=== PATIENT | female | born 1965 ===

== ENCOUNTER 2017-04-10 12:11 | Inpatient (IN) ==
[2017-04-10] MEDS ORDERED: DEXTROSE 50% 25 GM/50 ML VIAL IV PRN (16:18)
[2017-04-10] MEDS ORDERED: ONDANSETRON 4 MG/2 ML VIAL IV PRN (16:18)
[2017-04-10] MEDS ORDERED: traZODone 50 MG TABLET PO PRN (16:18)
[2017-04-10] MEDS ORDERED: LACTULOSE 20 GM/30 ML UDCUP PO PRN (16:18)
[2017-04-10] MEDS ORDERED: BISACODYL 5 MG TABLET PO PRN (16:18)
[2017-04-10] MEDS ORDERED: GLUCAGON 1 MG VIAL IM PRN (16:18)
[2017-04-10] MEDS ORDERED: ACETAMINOPHEN 325 MG TABLET PO PRN (16:18)
[2017-04-10] MEDS ORDERED: DOCUSATE SODIUM 100 MG CAPSULE PO PRN (16:18)
[2017-04-10] MEDS ORDERED: VANCOMYCIN (NICU) 1,000 MG in SYRINGE 1 EACH IV SCH (16:30)
--- NOTE | 2017-04-10 16:42 | Hospitalist History & Physical ---
<Elmer Galindo - Last Filed: 04/10/17 16:43> Assessment and Plan - Time spent with patient Time spent with patient: Greater than 30 minutes (1) Pneumonia Status: Acute Assessment and plan: Per external facility records, patient has CT suspicious for metastatic lesions versus satellite lesions including right lung consolidation and small right pleural effusion. She has been started on IV Zosyn and Vancomycin. Dr. Landaverde has been consulted to evaluated and make further recommendations. Qualifiers: Laterality: right (2) Diabetes mellitus Status: Acute Assessment and plan: Serum glucose is elevated >200. We are holding metformin due to CT. Will initiate Accu-cheks ACHS and sliding scale insulin per protocol. History of Present Illness Chief complaint: SOB, lingering cough History of present illness: Ms. Arzate is a 52 year old [place] female with a past medical history significant only for diabetes mellitus and cholecystectomy who presents via EMS as a direct admit from [facility] for further evaluation of chronic cough and CT suspicious of pneumonia. 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 In the last six weeks, she has traveled to [place], [place] and [place]. She reports that she did experience some cough productive of sputum prior to her trip [place] in February that resolved spontaneously. She reports that she began to cough again upon returning to work on March 20. She hasn't been to work since that day. During her most recent trip to [place] approximately two weeks ago she began to experience chest pain which prompted her to visit the ER in [place]. A CXR and CT confirmed the presence of pneumonia. She was started on po Levaquin. Upon returning to [place] this week, she still feels no better. A repeat CT at [facility] show multiple bilateral nodules suspicious for metastasis , small right pleural effusion. On exam, she is alert and oriented x3. She confirms nocturnal paroxysmal coughing spells, SOB and headache. She reports that she finds it difficult to sleep on her back or right side and has been sleeping in a chair lately. She denies chest pain, palpitations, hematemesis, syncope. She does have an elevated CRP of 14. Other labs were unremarkable. She is satting 93% on room air. She has been admitted to the hospital medicine service for further evaluation and treatment. Dr. Landaverde, pulmonology, is aware of this case per Dr. Pate, [facility] physician, and has been consulted for evaluation and bronchoscopy. Patient is a full code. Home meds have been reviewed and reconciled. Home Medications Medication Instructions Recorded Confirmed Type metFORMIN [Glucophage] 500 mg PO BID 04/10/17 04/10/17 History Piperacillin/Tazobactam [Zosyn] 3,375 mg IV Q8H vial 04/13/17 Rx guaiFENesin/DM ER 600-30 [Mucinex 1 tablet PO BID PRN tablet 04/13/17 Rx Dm 600-30 MG] Allergies Allergy/AdvReac Type Severity Reaction Status Date / Time codeine Allergy Verified 04/10/17 15:17 Medical,Surgical,& Family Hx - Medical History Endocrine: History of: Diabetes Mellitus (IDDM) - Surgical History Abdominal Surgeries: Surgical HX of: Cholecystectomy Reproductive Surgeries: Surgical HX of;: Section - Family History Family History: Reports;: Family Cancer (sister), Family Diabetes - Social History Smoking Status: Never smoker Frequency of Alcohol Use: None Type of Drug Use: None Marital Status: Lives With:: Spouse Functional capacity: independent ambulation 12 point system: reviewed and no additional remarkable complaints except as stated Exam - Constitutional Vitals: Period Temp Pulse Resp BP Sys/Oliver Pulse Ox Last 24 Hr 97.2 F-97.2 F 78-78 18-20 156-156/70-70 94-94 Exam: General appearance: overweight, no acute distress - Head Head exam: Present: normocephalic, atraumatic - Eye Eye exam: Present: EOMI. Absent: conjunctival injection, nystagmus Pupils: Present: ЕКАТЕРИНА, normal accommodation - ENT ENT exam: Present: normal exam, normal external ear exam - Neck Neck exam: Present: normal inspection. Absent: lymphadenopathy, tenderness, thyromegaly - Respiratory Respiratory exam: Present: clear to auscultation bilaterally. Absent: rales, rhonchi, wheezes - Cardiovascular Cardiovascular exam: Present: regular rate and rhythm. Absent: carotid bruit, gallop, rubs - GI/Abdominal GI/Abdominal exam: Present: normal bowel sounds. Absent: ascites, distended, mass - Extremities Exam Extremities exam: Present: normal inspection, normal capillary refill. Absent: edema - Back Exam Back exam: Absent: CVA tenderness (L), CVA tenderness (R) - Neurological Exam Neurological exam: Present: alert, oriented X3, CN II-XII intact, reflexes normal - Psychiatric Psychiatric exam: Present: normal affect, normal mood - Skin Skin exam: Present: normal color, warm, dry Results - Labs Lab Results: I have reviewed the past 24 hour labs <Brock Ann - Last Filed: 04/26/17 18:12> History of Present Illness History of present illness: Ms. Arzate is a 52 year old female with a pneumonia for over a month. Patient was transferred from [place] for pulmonology services. I, Dr. Ann, personally seen and evaluated the patient. I agree with the assessment and plan. Results - Labs CBC & BMP: 04/13/17 14:49 04/13/17 06:15
[2017-04-10 16:47] LABS: Basophils % 0.3 % (0.0-0.8); Eosinophils # 1.3 10*3/uL (0.0-0.87); Eosinophils % 14.9 % (0.00-10.9); Hematocrit 36.8 VOL% (35.7-47.0); Hemoglobin 12.3 GM/DL (12.0-16.0); Immature Granulocytes % 1.4 %; Immature Granulocytes Absolute 0.12 #; Lymphocytes # 1.8 10*3/uL (1.4-4.0); Lymphocytes % 19.9 % (21.3-54.2); Mean Corpuscular HGB Conc 33.4 GM/DL (32-36); Mean Corpuscular Hemoglobin 29 PG (27-34); Mean Corpuscular Volume 86.2 FL (87-102); Mean Platelet Volume 9.1 FL (9.6-12.0); Monocytes # 0.6 10*3/uL (0.11-0.8); Monocytes % 6.4 % (1.7-12.7); Neutrophils # 5.1 10*3/uL (1.4-7.4); Neutrophils % 57.1 % (38.7-73.9); Platelet Count 318 T/CUMM (130-400); Red Blood Count 4.27 MC/CUMM (3.8-5.5); Red Cell Distribution Width 12.1 % (9.3-17.3); White Blood Count 8.9 T/CUMM (4-12)
[2017-04-10] MEDS: INSULIN REGULAR 100 UNIT/ML SUBCUT SCH ×2 (16:48→21:36)
[2017-04-10] MEDS: PIPERACILLIN/TAZOBACTAM 3,375 MG in SODIUM CHLORIDE 0.9% 100 ML IV SCH (16:48)
[2017-04-10 17:07] LABS: Alanine Aminotransferase 39 U/L (13-56); Albumin 2.9 G/DL (3.4-5.0); Alkaline Phosphatase 88 U/L (45-117); Aspartate Amino Transferase 27 U/L (0-37); Bilirubin,Total < 0.39 MG/DL (0.2-1.0); Blood Urea Nitrogen 4 MG/DL (7-18); Calcium 8.2 MG/DL (8.5-10.1); Glucose 173 MG/DL (74-106); Potassium 3.4 MMOL/L (3.5-5.1); Sodium 143 MMOL/L (136-145)
[2017-04-10 17:13] LABS: Eosinophils 18 % (0-10); Lymphocytes 17 % (20-55); Polychromasia Few; Segmented Neutrophils 61 % (50-85); Total Cells Counted 100
[2017-04-10 17:14] LABS: Hypochromasia Slight; Platelet Estimate Normal
--- NOTE | 2017-04-10 17:40 | Pulmonology Consult Note ---
Assessment and Plan (1) Unresolved pneumonia Status: Acute Assessment and plan: She has had a cough for about 3 weeks and fever for several days. She has been treated with appropriate antibiotics and continued to have fever. Concerned that she may have a fungal infection or postobstructive lesion. She has had a CT done that showed no evidence of a pulmonary embolus. Will plan bronchoscopy in the morning. I will need to review the CT prior to that. Probably will need fluoroscopy. Discussed the procedure with the patient including transbronchial biopsies and the risk of bleeding or pneumothorax. Current Visit: Yes (2) Multiple lung nodules Status: Acute Assessment and plan: Concerning for malignancy versus fungal infection. Current Visit: Yes (3) Recent travel to [facility] Status: Acute Assessment and plan: Frank patient at risk for coccidioidomycosis. Current Visit: Yes History of Present Illness Chief complaint: Cough and fever History of present illness: Ms. Arzate is a 52 year old female who was sent by Dr. Kirsten Pate who is a claims assistant that runs the medical program at [facility] in [place]. The patient went on a trip to the [facility] including [place] and [place] about 6 weeks ago. She had a bit of a cough there did not came back about 3 weeks ago associated with fever. She had x-rays done at the emergency room in [place] and was told she had pneumonia and was treated with Levaquin. She presented a few days ago to the hospital in [place] and was admitted to the [facility] and has been on IV antibiotics. She has a consolidation and several other areas that are called satellite nodules and there was concern that this may be a fungal infection or a neoplasm. She does not have any history of a previous neoplasm. She is a non- smoker and never has smoked. She would of course be at risk for coccidioidomycosis in the [facility] where she has been. 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 She also travels a good bit in this job. Home Medications Medication Instructions Recorded Confirmed Type metFORMIN [Glucophage] 500 mg PO BID 04/10/17 04/10/17 History Allergies Allergy/AdvReac Type Severity Reaction Status Date / Time codeine Allergy Verified 04/10/17 15:17 12 point system: reviewed and no additional remarkable complaints except as stated - Constitutional Constitutional: Present: fever(s), weight loss (She has lost 9 pounds) - Cardiovascular Cardiovascular: Present: dyspnea, dyspnea on exertion - Respiratory Respiratory: Present: cough, dyspnea on exertion, change in phlegm color ( Phlegm has been moderately thick and clear) - Gastrointestinal Gastrointestinal: Present: vomiting (She was vomiting just before he came into the room) Exam (Pulmonay) H&P - Constitutional Vitals: Period Temp Pulse Resp BP Sys/Oliver Pulse Ox Last 24 Hr 97.2 F-97.2 F 78-78 18-20 156-156/70-70 94-94 Exam: Patient's alert and afebrile. Pupils react to light. Room air O2 sat 94%. Throat is clear. Neck is supple no bruits no lymphadenopathy. Thyroid normal size. Trachea midline. Chest sounds clear. I do not hear any rales or wheezes. No pleural rubs. Heart normal rate rhythm no murmurs no rubs no gallops. Abdomen soft nontender no masses. Extremities no clubbing cyanosis or edema. Calves nontender. Medical,Surgical,& Family Hx - Medical History Endocrine: History of: Diabetes Mellitus (IDDM) - Surgical History Abdominal Surgeries: Surgical HX of: Cholecystectomy Reproductive Surgeries: Surgical HX of;: Section - Family History Family History: Reports;: Family Cancer (sister), Family Diabetes - Social History Smoking Status: Never smoker Frequency of Alcohol Use: None Type of Drug Use: None Results - Labs CBC & BMP: 04/10/17 16:38 04/10/17 16:38 Lab Results: I have reviewed the past 24 hour labs - Diagnostic Findings Procedure: Chest x-ray: pending, CT - chest: pending (The CT disc has not been put on the computer for my review as yet.)
[2017-04-10] MEDS: guaiFENesin/DM ER 600-30 MG TABLET PO PRN (17:48)
[2017-04-10 17:52] LABS: Sedimentation Rate-Westergren 59 MM/HR (0-30)
[2017-04-10 18:20] LABS: HIV Antigen/Antibody Result Nonreactive (Nonreactive)
[2017-04-10 18:28] LABS: PT Patient Result 10.7 SECS
[2017-04-10] MEDS: VANCOMYCIN INJ 1,000 MG in SODIUM CHLORIDE 0.9% 250 ML IV SCH (23:52)
[2017-04-11] MEDS: diphenhydrAMINE CAP 25 MG CAPSULE PO PRN ×2 (00:42→14:31)
[2017-04-11] MEDS: PIPERACILLIN/TAZOBACTAM 3,375 MG in SODIUM CHLORIDE 0.9% 100 ML IV SCH ×3 (01:23→17:51)
--- NOTE | 2017-04-11 06:22 | EKG Report ---
Stationary ECG Study [facility] Test Date: 04/10/2017 5:58:39 PM Pat Name: NISHA OKEEFE Department: Room: 225 Gender: F Product Safety Tester: EI/CT : 1965 Requested by: Tyler Landaverde Order Number: [id number] Reading MD: SNEHA FERRELL Intervals [place] Rate: 83 P: 17 MO: 163 QRS: 0 QRSD: 81 T: -1 QT: 351 QTc: 391 Interpretive Statements SINUS RHYTHM MINIMAL VOLTAGE CRITERIA FOR LVH Electronically Signed On 04-11-17 06:48:20 CDT by SNEHA FERRELL [email or web address]
[2017-04-11 06:23] LABS: Basophils % 0.2 % (0.0-0.8); Eosinophils # 1.3 10*3/uL (0.0-0.87); Eosinophils % 11.3 % (0.00-10.9); Hematocrit 35.6 VOL% (35.7-47.0); Hemoglobin 12.3 GM/DL (12.0-16.0); Immature Granulocytes Absolute 0.11 #; Lymphocytes # 1.8 10*3/uL (1.4-4.0); Lymphocytes % 15.7 % (21.3-54.2); Mean Corpuscular HGB Conc 34.6 GM/DL (32-36); Mean Corpuscular Hemoglobin 29 PG (27-34); Mean Corpuscular Volume 83.4 FL (87-102); Mean Platelet Volume 9.4 FL (9.6-12.0); Monocytes # 0.7 10*3/uL (0.11-0.8); Monocytes % 5.7 % (1.7-12.7); Neutrophils # 7.6 10*3/uL (1.4-7.4); Neutrophils % 66.1 % (38.7-73.9); Platelet Count 288 T/CUMM (130-400); Red Blood Count 4.27 MC/CUMM (3.8-5.5); Red Cell Distribution Width 12.1 % (9.3-17.3); White Blood Count 11.5 T/CUMM (4-12)
[2017-04-11 06:47] LABS: Band Neutrophils 4 % (0-10); Eosinophils 10 % (0-10); Lymphocytes 11 % (20-55); Segmented Neutrophils 67 % (50-85); Total Cells Counted 100
[2017-04-11 06:48] LABS: Hypochromasia 1+; Microcytosis Slight; Platelet Estimate Normal
[2017-04-11 06:56] LABS: Albumin 2.7 G/DL (3.4-5.0); Bilirubin,Total 0.5 MG/DL (0.2-1.0); Calcium 8.4 MG/DL (8.5-10.1); Magnesium 1.9 MG/DL (1.8-2.4); Osmolality,Calculated 280.3 MOS/KG (273-304); Potassium 3.6 MMOL/L (3.5-5.1); Total Protein 6.6 G/DL (6.4-8.3)
[2017-04-11] MEDS ORDERED: MEPERIDINE 50 MG/1 ML VIAL IM ONE (07:00)
[2017-04-11] MEDS ORDERED: PROMETHAZINE 25 MG/1 ML VIAL IM ONE (07:00)
[2017-04-11] MEDS ORDERED: LIDOCAINE 1% 20 ML VIAL MISC INJ ONE (07:30)
[2017-04-11] MEDS ORDERED: MIDAZOLAM 2 MG/2 ML VIAL IV ONE (07:30)
--- NOTE | 2017-04-11 07:59 | Hospitalist Progress Note ---
Assessment and Plan - Time spent with patient Time spent with patient: Less than 30 minutes (1) Unresolved pneumonia Status: Acute Assessment and plan: Patient has been admitted and placed on broad-spectrum IV antibiotic therapy. She is now been seen by pulmonary and CAT scan reviewed. She has had recent travel to the [facility] and has multiple lung nodules. Continuing IV antibiotics and she will have bronchoscopy this morning. Appreciate pulmonary assistance. Patient is also been seen by infectious disease today. Notes have been reviewed. Current Visit: Yes (2) Multiple lung nodules Status: Acute Current Visit: Yes (3) Recent travel to [facility] Status: Acute Current Visit: Yes (4) Diabetes mellitus Status: Acute Assessment and plan: We will continue her home medical therapy along with Accu-Cheks and sliding scale. Current Visit: Yes Qualifiers: Diabetes mellitus type: type 2 Hospitalist: Subjective Interval history: Chart is been reviewed. Patient was examined. She had bronchoscopy earlier today. She is also been seen by infectious disease. She has continued cough but has no other complaints at this time. Exam - Constitutional Vitals: Period Temp Pulse Resp BP Sys/Oliver Pulse Ox Last 24 Hr 97.2 F-99.9 F 78-90 18-20 126-156/52-80 92-94 General appearance: no acute distress - Head Head exam: Present: normocephalic, atraumatic - Eye Eye exam: Present: EOMI Pupils: Present: ЕКАТЕРИНА - ENT ENT exam: Present: normal exam - Neck Neck exam: Present: normal inspection - Respiratory Respiratory exam: Present: rhonchi - Cardiovascular Cardiovascular exam: Present: regular rate and rhythm. Absent: tachycardia - GI/Abdominal GI/Abdominal exam: Present: normal bowel sounds, soft. Absent: mass, tenderness , rebound - Extremities Exam Extremities exam: Absent: calf tenderness, edema - Back Exam Back exam: Present: normal inspection - Neurological Exam Neurological exam: Present: alert, oriented X3, CN II-XII intact. Absent: motor sensory deficit - Psychiatric Psychiatric exam: Present: normal affect, normal mood. Absent: agitated, anxious - Skin Skin exam: Present: warm, dry. Absent: rash Results - Labs CBC & BMP: 04/11/17 05:32 04/11/17 05:32 Lab Results: I have reviewed the past 24 hour labs - Diagnostic Findings Procedure: Chest x-ray: report reviewed by me
--- NOTE | 2017-04-11 08:12 | Pulmonology Progress Note ---
Pulmonary - PN: Subj Interval history: This 52-year-old female has an unresolved primarily right middle lobe consolidation. She has been sick for about 6 weeks. Still having some fever. She had a recent trip to [place] and [place] and we are suspicious of possible fungal infection such as coccidioidomycosis. She is set up for bronchoscopy today. We will get brushings and hopefully some transbronchial biopsies in the right middle lobe. Exam (Progress Note) - Constitutional Vitals: Period Temp Pulse Resp BP Sys/Oliver Pulse Ox Last 24 Hr 97.2 F-99.9 F 78-90 18-20 126-156/52-80 92-94 Exam: Patient is alert oriented. Temperature 99.9. Pupils react to light. Throat is clear. Neck is supple no bruits. Chest reveals a few crackles over the right middle lobe otherwise clear. Heart normal rate and rhythm no murmurs. Abdomen soft nontender no masses. Extremities no clubbing cyanosis or edema. Calves nontender. Results - Labs CBC & BMP: 04/11/17 05:32 04/11/17 05:32 Lab Results: I have reviewed the past 24 hour labs - Diagnostic Findings Procedure: CT Abdomen and Pelvis: image reviewed by me (Consolidation with air bronchograms in right middle lobe. Consistent with unresolved pneumonia. Certainly could be an acute fungal pneumonia as well. She has small satellite lesion suggestive of metastatic disease) Assessment and Plan (1) Unresolved pneumonia Status: Acute Assessment and plan: She has had a cough for about 3 weeks and fever for several days. She has been treated with appropriate antibiotics and continued to have fever. Concerned that she may have a fungal infection or postobstructive lesion. She has had a CT done that showed no evidence of a pulmonary embolus. Will plan bronchoscopy in the morning. I will need to review the CT prior to that. Probably will need fluoroscopy. Discussed the procedure with the patient including transbronchial biopsies and the risk of bleeding or pneumothorax. 04/11/2017 patient is for bronchoscopy with biopsies of the right middle lobe today. She is on empiric antibiotics now. Current Visit: Yes (2) Multiple lung nodules Status: Acute Assessment and plan: Concerning for malignancy versus fungal infection. 04/11. The pulmonary nodules are too small really to see under fluoroscopy so the biopsies will be primarily in the area of the unresolved pneumonia. Likely it is the same process Current Visit: Yes (3) Recent travel to [facility] Status: Acute Assessment and plan: Makes patient at risk for coccidioidomycosis. 04/11/2017 this occurred about 6-8 weeks ago. Just prior to the onset of her symptoms. Current Visit: Yes
--- NOTE | 2017-04-11 08:55 | Operative Note ---
Date of procedure: 04/11/17 (Fiberoptic bronchoscopy with transbronchial biopsies right middle lobe 2 under fluoroscopy, bronchial brushings and washings) Pre-op diagnosis: Unresolved right middle lobe pneumonia suspected fungal infection Post-op diagnosis: same Procedure: The patient was given preoperative medication on the rinaldi. She was transported to the bronchoscopy suite. After an appropriate timeout to be sure we were dealing with Sisi Arzate, the patient was topically anesthetized in the nose and nasopharynx with Xylocaine. 3 L of nasal oxygen was placed in the right naris. She was given 2 mg and then an additional 2 mg of Versed to the point of sedation so a total of 4 mg. The fiberoptic bronchoscope was introduced via the left naris. Vocal cords were identified and noted to function normally with phonation. After further topical anesthesia the trachea was entered and was free of lesions. The alcon was sharp. The left lung showed some mild erythema but no endobronchial lesions. On the right side there were some increased secretions in the right middle lobe. However there were no endobronchial lesions. The fiberoptic bronchoscope was positioned in the right middle lobe. Under fluoroscopy we did transbronchial biopsies 2 in the right middle lobe and a brushing 1 in the right middle lobe. We obtained washings, actually lavaged the right middle lobe prior to doing the biopsies. There was only minimal bleeding did not require anything to subside on its own. The fiberoptic bronchoscope was removed and the patient returned to the her room in stable condition. Anesthesia: conscious sedation Surgeon / Physician: Tyler Landaverde Estimated blood loss: minimal Specimens: other (Bronchial washings, brushings 1, transbronchial biopsies 2 right middle lobe) Condition: stable Disposition: floor Results - Labs CBC & BMP: 04/11/17 05:32 04/11/17 05:32 Discharge Plan - Discharge Medications No Action metFORMIN [Glucophage] 500 mg PO BID - Follow Up or Referral - Forms/Instructions
[2017-04-11] MEDS ORDERED: ENOXAPARIN 40 MG/0.4 ML SYRINGE SUBCUT SCH (09:00)
[2017-04-11] MEDS: INSULIN REGULAR 100 UNIT/ML SUBCUT SCH ×4 (09:08→22:08)
[2017-04-11] MEDS ORDERED: MIDAZOLAM 2 MG/2 ML VIAL ONE ×2 (09:49→09:50)
--- NOTE | 2017-04-11 10:49 | Infectious Disease Consult ---
Assessment and Plan (1) Diabetes mellitus Status: Acute Assessment and plan: Fairly well controlled per patient Current Visit: Yes Qualifiers: Diabetes mellitus type: type 2 (2) Multiple lung nodules Status: Acute Assessment and plan: Bronchoscopy done today. Will await results. Current Visit: Yes (3) Unresolved pneumonia Status: Acute Assessment and plan: Possibly an atypical pneumonia, particularly fungal, given her travel history. Recommendations: 1. Send urine histoplasma antigen as well as serum cryptococcal antigen. I see Coccidioides serology was sent and we will follow those results. 2. Agree with current empiric antibiotics vancomycin and Zosyn. 3. Follow-up results of pending studies and adjust antibiotics accordingly Thank you very much for the consult. Will follow. Discussed with patient's at bedside. Current Visit: Yes History of Present Illness Chief complaint: Pneumonia History of present illness: Ms. Arzate is a 52 year old female was well until about 3 weeks ago when she developed a cough. The cough subsequently became productive of yellowish sputum , never hemoptysis. She started having fever about 1-1/2 weeks ago T-max of 100. Because of the persisting cough the patient decided to seek medical attention at [facility] and was subsequently transferred here. 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 Over the past months she has been to [place], [place], and [place]. No known ill contacts, is doing well. He has been on the trips with her. The patient is diabetic with her last A1c she says being 7.1%. Apparently a CT chest [facility] revealed multiple pulmonary nodules and also some consolidation in the right middle lung. I am asked to assist with management of this persisting pneumonia. Home Medications Medication Instructions Recorded Confirmed Type metFORMIN [Glucophage] 500 mg PO BID 04/10/17 04/10/17 History Allergies Allergy/AdvReac Type Severity Reaction Status Date / Time codeine Allergy Verified 04/10/17 15:17 12 point system: reviewed and no additional remarkable complaints except as stated (Per HPI) Medical,Surgical,& Family Hx - Medical History Endocrine: History of: Diabetes Mellitus (IDDM) - Surgical History Abdominal Surgeries: Surgical HX of: Cholecystectomy Reproductive Surgeries: Surgical HX of;: Section - Family History Family History: Reports;: Family Cancer (sister), Family Diabetes - Social History Smoking Status: Never smoker Frequency of Alcohol Use: None Type of Drug Use: None Infectious Disease Exam H&P - Constitutional Vitals: Vital Signs Temp Pulse Resp BP Pulse Ox 98.9 F 92 H 16 141/7 95 04/11/17 07:10 04/11/17 09:22 04/11/17 09:22 04/11/17 09:22 04/11/17 09:16 Intake and Output 04/10/17 04/11/17 04/11/17 23:59 07:59 15:59 Intake Total 100 / 100 250 / 250 100 / 100 Output Total 900 / 900 1000 / 1000 Balance -800 / -800 -750 / -750 100 / 100 Intake: IV 100 / 100 250 / 250 100 / 100 Zosyn 3,375 mg In Ns 100 100 / 100 100 / 100 ml @ 25 mls/hr IV Q8H YAHIR Rx#:[id number] Vancomycin Inj 1,000 mg 250 / 250 In Ns 250 ml @ 250 mls/hr IV Q12H YAHIR Rx#: [id number] Output: Urine 900 / 900 1000 / 1000 Other: Voiding Method Urinal Urinal Exam: General: Patient relatively comfortable, but coughing intermittently, dry cough HEENT: Mucous membranes pink and moist, anicteric acyanotic, ЕКАТЕРИНА, no oropharyngeal exudates, good dentition Neck: Supple, no thyroid gland enlargement, no lymphadenopathy Respiratory system: Breath sounds vesicular, no crepitations or wheezes heard Cardiovascular: Normal S1 and S2, no murmurs appreciated Abdomen: Normal bowel sounds, soft nontender throughout, no organomegaly or mass Genitourinary: No suprapubic pain or bladder distention Extremities: no edema Skin: No rash Reports - Labs CBC & BMP: 04/11/17 05:32 04/11/17 05:32 Labs: Laboratory Results - last 24 hr 04/10/17 04/10/17 04/10/17 15:16 16:33 16:38 WBC 8.9 RBC 4.27 Hgb 12.3 Hct 36.8 MCV 86.2 L MCH 29 MCHC 33.4 RDW 12.1 Plt Count 318 MPV 9.1 L Neut % (Auto) 57.1 Lymph % (Auto) 19.9 L Terrell % (Auto) 6.4 Eos % (Auto) 14.9 H Baso % (Auto) 0.3 Neut # (Auto) 5.1 Lymph # (Auto) 1.8 Terrell # (Auto) 0.6 Eos # (Auto) 1.3 H Baso # (Auto) 0.0 Total Counted 100 Immature Gran % 1.4 Nucleated RBC % 0.0 Immature Gran # 0.12 Segmented Neutrophils 61 Band Neutrophils Lymphocytes 17 L Monocytes 4 Eosinophils 18 H Basophils Nucleated RBCs # 0.00 Platelet Estimate Normal Polychromasia Few Hypochromasia Slight Microcytosis ESR Westergren 59 H INR 1.0 PT Patient/Control Mix 10.7 Circ Anticoag PTT 43.0 H Sodium Potassium Chloride Carbon Dioxide Anion Gap BUN Creatinine GFR Calculation BUN/Creatinine Ratio Glucose POC Glucose 239 H Hemoglobin A1c Calculated Osmolality Calcium Magnesium Total Bilirubin AST ALT Alkaline Phosphatase C-Reactive Protein Total Protein Albumin Globulin Albumin/Globulin Ratio HIV 1&2 Antigen & Ab 04/10/17 04/10/17 04/10/17 16:38 16:38 20:46 WBC RBC Hgb Hct MCV MCH MCHC RDW Plt Count MPV Neut % (Auto) Lymph % (Auto) Terrell % (Auto) Eos % (Auto) Baso % (Auto) Neut # (Auto) Lymph # (Auto) Terrell # (Auto) Eos # (Auto) Baso # (Auto) Total Counted Immature Gran % Nucleated RBC % Immature Gran # Segmented Neutrophils Band Neutrophils Lymphocytes Monocytes Eosinophils Basophils Nucleated RBCs # Platelet Estimate Polychromasia Hypochromasia Microcytosis ESR Westergren INR PT Patient/Control Mix Circ Anticoag PTT Sodium 143 Potassium 3.4 L Chloride 107 Carbon Dioxide 27 Anion Gap 12.4 BUN 4 L Creatinine 0.60 GFR Calculation 97 BUN/Creatinine Ratio 6.00 Glucose 173 H POC Glucose 229 H Hemoglobin A1c Calculated Osmolality 285.0 Calcium 8.2 L Magnesium Total Bilirubin < 0.39 AST 27 ALT 39 Alkaline Phosphatase 88 C-Reactive Protein 11.40 H Total Protein 7.0 Albumin 2.9 L Globulin 4.1 H Albumin/Globulin Ratio 0.7 L HIV 1&2 Antigen & Ab Nonreactive 04/11/17 04/11/17 04/11/17 05:32 05:32 05:32 WBC 11.5 RBC 4.27 Hgb 12.3 Hct 35.6 L MCV 83.4 L MCH 29 MCHC 34.6 RDW 12.1 Plt Count 288 MPV 9.4 L Neut % (Auto) 66.1 Lymph % (Auto) 15.7 L Terrell % (Auto) 5.7 Eos % (Auto) 11.3 H Baso % (Auto) 0.2 Neut # (Auto) 7.6 H Lymph # (Auto) 1.8 Terrell # (Auto) 0.7 Eos # (Auto) 1.3 H Baso # (Auto) 0.0 Total Counted 100 Immature Gran % 1.0 Nucleated RBC % 0.0 Immature Gran # 0.11 Segmented Neutrophils 67 Band Neutrophils 4 Lymphocytes 11 L Monocytes 7 Eosinophils 10 Basophils 1.0 H Nucleated RBCs # 0.00 Platelet Estimate Normal Polychromasia Hypochromasia 1+ Microcytosis Slight ESR Westergren INR PT Patient/Control Mix Circ Anticoag PTT Sodium 141 Potassium 3.6 Chloride 107 Carbon Dioxide 26 Anion Gap 11.6 BUN 4 L Creatinine 0.60 GFR Calculation 97 BUN/Creatinine Ratio 6.00 Glucose 150 H POC Glucose Hemoglobin A1c 8.2 H Calculated Osmolality 280.3 Calcium 8.4 L Magnesium 1.9 Total Bilirubin 0.50 AST 21 ALT 33 Alkaline Phosphatase 79 C-Reactive Protein Total Protein 6.6 Albumin 2.7 L Globulin 3.9 H Albumin/Globulin Ratio 0.6 L HIV 1&2 Antigen & Ab 04/11/17 06:51 WBC RBC Hgb Hct MCV MCH MCHC RDW Plt Count MPV Neut % (Auto) Lymph % (Auto) Terrell % (Auto) Eos % (Auto) Baso % (Auto) Neut # (Auto) Lymph # (Auto) Terrell # (Auto) Eos # (Auto) Baso # (Auto) Total Counted Immature Gran % Nucleated RBC % Immature Gran # Segmented Neutrophils Band Neutrophils Lymphocytes Monocytes Eosinophils Basophils Nucleated RBCs # Platelet Estimate Polychromasia Hypochromasia Microcytosis ESR Westergren INR PT Patient/Control Mix Circ Anticoag PTT Sodium Potassium Chloride Carbon Dioxide Anion Gap BUN Creatinine GFR Calculation BUN/Creatinine Ratio Glucose POC Glucose 191 H Hemoglobin A1c Calculated Osmolality Calcium Magnesium Total Bilirubin AST ALT Alkaline Phosphatase C-Reactive Protein Total Protein Albumin Globulin Albumin/Globulin Ratio HIV 1&2 Antigen & Ab - Reports Microbiology: Microbiology 04/11/17 Unknown Fungal Smear - Final Bronchial Washings No fungal elements seen - Impressions No imaging studies available for me to review
[2017-04-11] MEDS: PANTOPRAZOLE 40 MG TABLET PO SCH (11:01)
--- NOTE | 2017-04-11 12:07 | XRay Report ---
XR chest inspiration expiratio Indication: Status post bronchoscopy. Comparison: Chest x-ray 04/09/2017. Technique: AP chest was performed in inspiration and expiration. Findings: There is no evidence of pneumothorax. The chest is essentially stable when compared to previous study. Airspace disease remains present within the mid and lower right lung. Impression: 1. Stable interval appearance of the chest. No evidence of acute complication from recent procedure. 04/11/2017 12:03 PM PROCEDURE INTERPRETED AT [facility] DEPARTMENT OF RADIOLOGY Final Report Signed by: Dr. Ascencion Zarate
[2017-04-11] MEDS: VANCOMYCIN INJ 1,000 MG in SODIUM CHLORIDE 0.9% 250 ML IV SCH (13:19)
[2017-04-11] MEDS ORDERED: VANCOMYCIN INJ 1,500 MG in SODIUM CHLORIDE 0.9% 500 ML IV ONE (13:30)
[2017-04-11] MEDS: guaiFENesin/DM ER 600-30 MG TABLET PO PRN (14:40)
--- NOTE | 2017-04-11 19:31 | ECHO Report ---
Sisi Arzate Exam Date: 04/11/2017 09:03 Referring Physician: Technologist: lupe Covington ARDMS, RVT Age: 52 Ht (in): 60 Wt (lb): 145 Gender: F Exam Location: [facility] Echo Indications: Cough, Shortness of breath, Pneumonia, IDDM BP: 139 / 75 HR: 92 Rhythm: Sinus Technical Quality: IMPRESSIONS Normal left ventricular cavity size. Normal left ventricular wall thickness and systolic function. Left ventricular ejection fraction is estimated at 60 %. Normal diastolic function. No significant valvular anormalities. MEASUREMENTS (Male / Female) Normal Values 2D ECHO LV Diastolic Diameter PLAX 3.6 cm 4.2 - 5.9 / 3.9 - 5.3 cm LV Systolic Diameter PLAX 1.9 cm LV Fractional Shortening PLAX 46.8 % IVS Diastolic Thickness 0.9 cm 0.6 - 1.0 / 0.6 - 0.9 cm LVPW Diastolic Thickness 0.9 cm 0.6 - 1.0 / 0.6 - 0.9 cm RV Internal Dim ED PLAX 2.2 cm Aortic Root Diameter 2.6 cm LA Systolic Diameter LX 2.8 cm 3.0 - 4.0 / 2.7 - 3.8 cm DOPPLER TR Peak Velocity 205.0 cm/s TR Peak Gradient 16.8 mmHg FINDINGS Left Ventricle Normal left ventricular cavity size. Normal left ventricular wall thickness and systolic function. Left ventricular ejection fraction is estimated at 60 %. Normal diastolic function. Right Ventricle The right ventricle is normal in size and function. Right Atrium The right atrium is normal in size. Left Atrium The left atrium is normal in size. Mitral Valve Morphologically normal mitral valve without significant stenosis or prolapse. There is no mitral regurgitation. Aortic Valve Morphologically normal aortic valve without significant sclerosis or stenosis. There is no aortic regurgitation. Tricuspid Valve Morphologically normal tricuspid valve. Trace tricuspid valve regurgitation. Tricuspid regurgitation velocities suggest a PAP of 27 mmHg. Pulmonic Valve Morphologically normal pulmonic valve. Trace pulmonary valve regurgitation. Pericardium Normal pericardium without effusion. Aorta Normal ascending aorta dimension. Joaquín Lim (Electronically Signed) Final Date: 11 April 2017 19:03
[2017-04-11] MEDS: metFORMIN 500 MG TABLET PO SCH (22:08)
[2017-04-12] MEDS: diphenhydrAMINE CAP 25 MG CAPSULE PO PRN ×3 (01:25→23:13)
[2017-04-12] MEDS: VANCOMYCIN INJ 1,000 MG in SODIUM CHLORIDE 0.9% 250 ML IV SCH ×2 (01:52→14:03)
[2017-04-12] MEDS: PIPERACILLIN/TAZOBACTAM 3,375 MG in SODIUM CHLORIDE 0.9% 100 ML IV SCH ×3 (03:00→16:54)
--- NOTE | 2017-04-12 07:22 | Pulmonology Progress Note ---
Pulmonary - PN: Subj Interval history: This 52-year-old female has an unresolved primarily right middle lobe consolidation. She has been sick for about 6 weeks. Still having some fever. She had a recent trip to [place] and [place] and we are suspicious of possible fungal infection such as coccidioidomycosis. She is set up for bronchoscopy today. We will get brushings and hopefully some transbronchial biopsies in the right middle lobe. 04/12/2017 patient is afebrile and feeling a little better. She had some blood- streaked sputum yesterday following the lung biopsies. Should have pathology report out tomorrow. I discussed the case with Dr. Kirsten Pate at the [facility]. They would like for her to be transferred back up there after the path report is back. Hopefully we will have plans for treatment at that time. Exam (Progress Note) - Constitutional Vitals: Period Temp Pulse Resp BP Sys/Oliver Pulse Ox Last 24 Hr 96.8 F-98.8 F 72-94 14-20 99-156/7 90-98 Exam: Patient is alert oriented. Temperature normal. Pupils react to light. Throat is clear. Neck is supple no bruits. Chest reveals a few crackles over the right middle lobe otherwise clear. Heart normal rate and rhythm no murmurs. Abdomen soft nontender no masses. Extremities no clubbing cyanosis or edema. Calves nontender. Results - Labs CBC & BMP: 04/11/17 05:32 04/11/17 05:32 Lab Results: I have reviewed the past 24 hour labs - Diagnostic Findings Procedure: Chest x-ray: image reviewed by me (Post bronchoscopy chest x-ray was okay. No pneumothorax.) Assessment and Plan (1) Unresolved pneumonia Status: Acute Assessment and plan: She has had a cough for about 3 weeks and fever for several days. She has been treated with appropriate antibiotics and continued to have fever. Concerned that she may have a fungal infection or postobstructive lesion. She has had a CT done that showed no evidence of a pulmonary embolus. Will plan bronchoscopy in the morning. I will need to review the CT prior to that. Probably will need fluoroscopy. Discussed the procedure with the patient including transbronchial biopsies and the risk of bleeding or pneumothorax. 04/11/2017 patient is for bronchoscopy with biopsies of the right middle lobe today. She is on empiric antibiotics now. 04/12/2017 await pathology report. Continuing empiric antibiotics for bacterial pneumonia. Still concerned about the possibility of a fungal pneumonia Current Visit: Yes (2) Multiple lung nodules Status: Acute Assessment and plan: Concerning for malignancy versus fungal infection. 04/11. The pulmonary nodules are too small really to see under fluoroscopy so the biopsies will be primarily in the area of the unresolved pneumonia. Likely it is the same process Current Visit: Yes (3) Recent travel to [facility] Status: Acute Assessment and plan: Makes patient at risk for coccidioidomycosis. 04/11/2017 this occurred about 6-8 weeks ago. Just prior to the onset of her symptoms. 04/12/2017 again makes certain fungal etiologies and play. Primarily coccidioidomycosis. Current Visit: Yes (4) Diabetes mellitus Status: Acute Assessment and plan: We can resume her metformin now. Current Visit: Yes Qualifiers: Diabetes mellitus type: type 2
[2017-04-12] MEDS: PANTOPRAZOLE 40 MG TABLET PO SCH (08:25)
[2017-04-12] MEDS: metFORMIN 500 MG TABLET PO SCH ×2 (08:25→22:00)
[2017-04-12] MEDS: INSULIN REGULAR 100 UNIT/ML SUBCUT SCH ×4 (08:26→22:05)
--- NOTE | 2017-04-12 13:17 | Pathology Report from [facility] ---
[facility] – [place] ACCESSION # : [id number] PATIENT NAME : Sisi Arzate ORDERING DR : ARMANDO HARRINGTON MD CLINICAL HX: Unresolved Right Middle Lung Consolidation, Possible fungal infection. POST-OP DX: Same SPECIMEN INFO: Washing,Bronchial,RML - 10 mls blood-tinged, slighty cloudy, mucoid. CLASS: II CLASS COMMENTS: Reactive pulmonary cells, inflammationCELL BLOCK: Same CLASS LEGEND: CLASS 0 Material inadequate for diagnosis because of (see comment) CLASS I Absence of atypical or abnormal cells CLASS II Atypical Cytology but no evidence of malignancy CLASS III Cytology suggestive of but not conclusive for malignancy CLASS IV Cytology strongly suggestive of malignancy CLASS V Cytology conclusive for malignancy COLLECTED DATE: 04/11/2017 [facility] REPORT DATE: 04/12/2017 ELECTRONICALLY SIGNED BY: Karen Martin M.D. 04/12/2017 - 9:21:41 [email or web address]
--- NOTE | 2017-04-12 13:17 | Pathology Report from [facility] ---
[facility] ACCESSION # : [id number] PATIENT NAME : Sisi Arzate ORDERING DR : ARMANDO HARRINGTON MD CLINICAL HX: Unresolved Right Middle Lung Consolidation, Possible fungal infection. POST-OP DX: Same SPECIMEN INFO: Brushing,Bronchial,RML - 1 brush (Received in Cytolyt). CLASS: II CLASS COMMENTS: Reactive pulmonary cells, inflammationCELL BLOCK: Same CLASS LEGEND: CLASS 0 Material inadequate for diagnosis because of (see comment) CLASS I Absence of atypical or abnormal cells CLASS II Atypical Cytology but no evidence of malignancy CLASS III Cytology suggestive of but not conclusive for malignancy CLASS IV Cytology strongly suggestive of malignancy CLASS V Cytology conclusive for malignancy COLLECTED DATE: 04/11/2017 [facility] REPORT DATE: 04/12/2017 ELECTRONICALLY SIGNED BY: Karen Martin M.D. 04/12/2017 - 9:30:32 [email or web address]
[2017-04-12] MEDS ORDERED: VANCOMYCIN 1,000 MG VIAL IV SCH (14:00)
[2017-04-12] MEDS: VANCOMYCIN INJ 1,250 MG in SODIUM CHLORIDE 0.9% 250 ML IV SCH ×2 (15:02→23:13)
--- NOTE | 2017-04-12 15:08 | Hospitalist Progress Note ---
Assessment and Plan (1) Diabetes mellitus Status: Acute Assessment and plan: Home meds, SSI Current Visit: Yes Qualifiers: Diabetes mellitus type: type 2 (2) Unresolved pneumonia Status: Acute Assessment and plan: Pulmonary and ID on board On vancomycin and zosyn Underwent bronchoscopy yesterday Current Visit: Yes (3) Multiple lung nodules Status: Acute Assessment and plan: Bronch yesterday f/u path Current Visit: Yes (4) Recent travel to [facility] Status: Acute Current Visit: Yes Hospitalist: Subjective Interval history: No acute events overnight. She is feeling better. Still with cough. She is eager for discharge. Exam - Constitutional Vitals: Period Temp Pulse Resp BP Sys/Oliver Pulse Ox Last 24 Hr 96.8 F-97.7 F 73-85 18-20 115-156/57-80 90-96 General appearance: normal weight - Head Head exam: Present: normocephalic, atraumatic - Eye Eye exam: Present: EOMI Pupils: Present: ЕКАТЕРИНА - ENT ENT exam: Present: normal exam - Neck Neck exam: Present: normal inspection - Respiratory Respiratory exam: Present: wheezes - Cardiovascular Cardiovascular exam: Present: regular rate and rhythm - GI/Abdominal GI/Abdominal exam: Present: normal bowel sounds, soft - Extremities Exam Extremities exam: Present: normal inspection - Back Exam Back exam: Present: normal inspection - Neurological Exam Neurological exam: Present: alert, oriented X3 - Psychiatric Psychiatric exam: Present: normal affect, normal mood - Skin Skin exam: Present: warm, intact Results - Labs CBC & BMP: 04/11/17 05:32 04/11/17 05:32
--- NOTE | 2017-04-12 15:51 | Infectious Disease Progress ---
Assessment and Plan (1) Diabetes mellitus Status: Acute Assessment and plan: Fairly well controlled per patient Current Visit: Yes Qualifiers: Diabetes mellitus type: type 2 (2) Multiple lung nodules Status: Acute Assessment and plan: There is evidence of right lower lung pneumonia. Initial studies negative so far. Patient seems better on current antibiotic therapy so we will continue those and follow-up pending studies. Current Visit: Yes (3) Unresolved pneumonia Status: Acute Assessment and plan: Possibly an atypical pneumonia, particularly fungal, given her travel history. Recommendations: Continue current management and follow-up pending serologies. Current Visit: Yes Infectious Disease - PN: Subj Interval history: Patient says she is feeling a bit better today coughing a bit less, she has not had fever. Eating a little better. Infectious Disease Exam (PN) - Constitutional Vitals: Temp Pulse Resp BP Pulse Ox 97.7 F 83 20 120/75 96 04/12/17 11:46 04/12/17 11:46 04/12/17 11:46 04/12/17 11:46 04/12/17 11:46 General appearance: normal weight Exam: General appearance: no acute distress - Eye Eye exam: Present: EOMI. no icterus Pupils: Present: ЕКАТЕРИНА - ENT ENT exam: no oral exudates - Respiratory Respiratory exam: vesicular BS, no crepitations or wheezes - Cardiovascular Cardiovascular exam: regular rate and rhythm, no murmurs - GI/Abdominal GI/Abdominal exam: normal bowel sounds, soft, non-tender, no organomegaly or mass - Extremities Exam Extremities exam: no edema - Skin Skin exam: no rash Results - Labs CBC & BMP: 04/11/17 05:32 04/11/17 05:32 Lab Results: I have reviewed the past 24 hour labs - Diagnostic Findings Procedure: Chest x-ray: image reviewed by me, report reviewed by me (Right lung base consolidation or pulmonary studies on BAL sample negative)
[2017-04-13] MEDS: PIPERACILLIN/TAZOBACTAM 3,375 MG in SODIUM CHLORIDE 0.9% 100 ML IV SCH ×2 (00:50→08:42)
--- NOTE | 2017-04-13 03:21 | Pathology Report from [facility] ---
[facility] ACCESSION # : [id number] PATIENT NAME : Sisi Arzate ORDERING DR : ARMANDO HARRINGTON MD CLINICAL HX: Unresolved Right Middle Lung Consolidation, Possible fungal infection. POST-OP DX: Same SPECIMEN INFO: Brushing,Bronchial,RML - 1 brush (Received in Cytol[facility]). CLASS: II CLASS COMMENTS: Reactive pulmonary cells, inflammationCELL BLOCK: Same CLASS LEGEND: CLASS 0 Material inadequate for diagnosis because of (see comment) CLASS I Absence of atypical or abnormal cells CLASS II Atypical Cytology but no evidence of malignancy CLASS III Cytology suggestive of but not conclusive for malignancy CLASS IV Cytology strongly suggestive of malignancy CLASS V Cytology conclusive for malignancy COLLECTED DATE: 04/11/2017 [facility] REPORT DATE: 04/12/2017 ELECTRONICALLY SIGNED BY: Karen Martin M.D. 04/12/2017 - 9:30:32 [email or web address]
--- NOTE | 2017-04-13 03:21 | Pathology Report from [facility] ---
[facility] [place] ACCESSION # : [id number] PATIENT NAME : Sisi Arzate ORDERING DR : ARMANDO HARRINGTON MD CLINICAL HX: Unresolved Right Middle Lung Consolidation, Possible fungal infection. POST-OP DX: Same SPECIMEN INFO: Washing,Bronchial,RML - 10 mls blood-tinged, slighty cloudy, mucoid. CLASS: II CLASS COMMENTS: Reactive pulmonary cells, inflammationCELL BLOCK: Same CLASS LEGEND: CLASS 0 Material inadequate for diagnosis because of (see comment) CLASS I Absence of atypical or abnormal cells CLASS II Atypical Cytology but no evidence of malignancy CLASS III Cytology suggestive of but not conclusive for malignancy CLASS IV Cytology strongly suggestive of malignancy CLASS V Cytology conclusive for malignancy COLLECTED DATE: 04/11/2017 [facility] REPORT DATE: 04/12/2017 ELECTRONICALLY SIGNED BY: Karen Martin M.D. 04/12/2017 - 9:21:41 [email or web address]
--- NOTE | 2017-04-13 03:34 | Pathology Report from [facility] ---
[facility] ACCESSION # : [id number] PATIENT NAME : Nisha Okeefe ORDERING DR : ARMANDO HARRINGTON MD CLINICAL HX: Unresolved RML consolidation POST-OP DX: Suspect fungal infection SPECIMEN INFO: RML bronchial biopsies 2 GROSS DESCRIPTION: The specimen is received in formalin labeled with the patients name NISHA OKEEFE and consists of fragments of white mucosal tissue measuring 0.2 x 0.4 cm. Submitted in one cassette. DIAGNOSIS FOR NISHA OKEEFE: RIGHT MIDDLE LOBE BRONCHIAL BIOPSIES X 2: Acute inflammation, fibrosis, anthracosis. No granulomas or malignancy seen. GMS and PASAB fungal stains negative; AFB stain negative. Microbiological cultures to follow. COLLECTED DATE: 04/11/2017 [facility] REPORT DATE: 04/12/2017 ELECTRONICALLY SIGNED BY: Karen Martin M.D. 04/12/2017 - 14:24:53 [facility]
[2017-04-13] MEDS: diphenhydrAMINE CAP 25 MG CAPSULE PO PRN (06:24)
[2017-04-13] MEDS: VANCOMYCIN INJ 1,250 MG in SODIUM CHLORIDE 0.9% 250 ML IV SCH (06:24)
[2017-04-13 07:02] LABS: Calcium 8.4 MG/DL (8.5-10.1); Osmolality,Calculated 286.8 MOS/KG (273-304); Potassium 3.7 MMOL/L (3.5-5.1)
--- NOTE | 2017-04-13 08:10 | Pulmonology Progress Note ---
Pulmonary - PN: Subj Interval history: This 52-year-old female has an unresolved primarily right middle lobe consolidation. She has been sick for about 6 weeks. Still having some fever. She had a recent trip to [place] and [place] and we are suspicious of possible fungal infection such as coccidioidomycosis. She is set up for bronchoscopy today. We will get brushings and hopefully some transbronchial biopsies in the right middle lobe. 04/12/2017 patient is afebrile and feeling a little better. She had some blood- streaked sputum yesterday following the lung biopsies. Should have pathology report out tomorrow. I discussed the case with Dr. Kirsten Pate at the [facility]. They would like for her to be transferred back up there after the path report is back. Hopefully we will have plans for treatment at that time. 04/13/17 patient feeling much better. Bronchial washings negative for fungi. Biopsies do not show any granulomas or fungi. I think this is a bacterial pneumonia. She is clearly better on Zosyn and Levaquin. I would finish out about 5 days of IV antibiotics. Dr. Pate will take her back at the [facility] today. She can finish treatment there. It is possible that fungal cultures may yet grow out positive in a couple of weeks. Can contact Dr. Pate if that is the case. However I think that is unlikely. Also the serology for fungi is pending Exam (Progress Note) - Constitutional Vitals: Period Temp Pulse Resp BP Sys/Oliver Pulse Ox Last 24 Hr 97.1 F-98.8 F 73-84 20-20 120-146/67-81 92-96 Exam: Patient is alert oriented. Temperature normal. Pupils react to light. Throat is clear. Neck is supple no bruits. Chest reveals a few crackles over the right middle lobe otherwise clear. Heart normal rate and rhythm no murmurs. Abdomen soft nontender no masses. Extremities no clubbing cyanosis or edema. Calves nontender. Results - Labs CBC & BMP: 04/11/17 05:32 04/13/17 06:15 Lab Results: I have reviewed the past 24 hour labs Assessment and Plan (1) Unresolved pneumonia Status: Acute Assessment and plan: She has had a cough for about 3 weeks and fever for several days. She has been treated with appropriate antibiotics and continued to have fever. Concerned that she may have a fungal infection or postobstructive lesion. She has had a CT done that showed no evidence of a pulmonary embolus. Will plan bronchoscopy in the morning. I will need to review the CT prior to that. Probably will need fluoroscopy. Discussed the procedure with the patient including transbronchial biopsies and the risk of bleeding or pneumothorax. 04/11/2017 patient is for bronchoscopy with biopsies of the right middle lobe today. She is on empiric antibiotics now. 04/12/2017 await pathology report. Continuing empiric antibiotics for bacterial pneumonia. Still concerned about the possibility of a fungal pneumonia 04/13/2017 pathology report shows no evidence of fungi. No granulomas. Likely bacterial pneumonia. Cultures and fungal serology will take a while coming back. Current Visit: Yes (2) Multiple lung nodules Status: Acute Assessment and plan: Concerning for malignancy versus fungal infection. 04/11. The pulmonary nodules are too small really to see under fluoroscopy so the biopsies will be primarily in the area of the unresolved pneumonia. Likely it is the same process 04/13/2017 will need follow-up x-ray to be sure these do not grow. A CT in 6 weeks would be indicated. Current Visit: Yes (3) Recent travel to [facility] Status: Acute Assessment and plan: Makes patient at risk for coccidioidomycosis. 04/11/2017 this occurred about 6-8 weeks ago. Just prior to the onset of her symptoms. 04/12/2017 again makes certain fungal etiologies in play. Primarily coccidioidomycosis. 04/13/2017 tests are negative for fungi at this point. Would treat with antibiotics for 5 more days. Again this could be done in [place] at the [facility]. Current Visit: Yes (4) Diabetes mellitus Status: Acute Assessment and plan: We can resume her metformin now. 04/13/2017 blood sugars well controlled. Current Visit: Yes Qualifiers: Diabetes mellitus type: type 2
[2017-04-13] MEDS: metFORMIN 500 MG TABLET PO SCH (08:37)
[2017-04-13] MEDS: PANTOPRAZOLE 40 MG TABLET PO SCH (08:39)
[2017-04-13] MEDS: INSULIN REGULAR 100 UNIT/ML SUBCUT SCH ×3 (08:40→16:04)
--- NOTE | 2017-04-13 10:59 | Infectious Disease Progress ---
Assessment and Plan (1) Diabetes mellitus Status: Acute Assessment and plan: Fairly well controlled per patient Current Visit: Yes Qualifiers: Diabetes mellitus type: type 2 (2) Multiple lung nodules Status: Acute Assessment and plan: There is evidence of right lower lung pneumonia. Patient has had good response to antibiotic therapy suggesting that this is a bacterial pneumonia. Her Coccidioides screening serology has actually come back positive but we have to wait for the titers to see if this represents active infection. There were no granulomas seen on the lung biopsy specimen also fungal stain of the tissue was negative so I am doubtful that she actually has fungal pneumonia. Recommend agents: 1. Discontinue vancomycin since no MRSA isolated 2. Can continue Zosyn for a few more days can complete 5-7 days therapy for bacterial pneumonia 2. We will have to follow up with the finalized results of the fungal serologies Current Visit: Yes (3) Unresolved pneumonia Status: Acute Assessment and plan: Treatment as above Current Visit: Yes Infectious Disease - PN: Subj Interval history: Patient has been feeling better every day still has some dry cough but her breathing is better and overall she is not as malaise. She has not had fever. Appetite is good. Infectious Disease Exam (PN) - Constitutional Vitals: Temp Pulse Resp BP Pulse Ox 97.0 F L 71 18 129/60 93 L 04/13/17 08:00 04/13/17 08:00 04/13/17 10:00 04/13/17 08:00 04/13/17 08:00 General appearance: normal weight Exam: General appearance: no acute distress - Eye Eye exam: Present: EOMI. no icterus Pupils: Present: ЕКАТЕРИНА - ENT ENT exam: no oral exudates - Respiratory Respiratory exam: vesicular BS, no crepitations or wheezes - Cardiovascular Cardiovascular exam: regular rate and rhythm, no murmurs - GI/Abdominal GI/Abdominal exam: normal bowel sounds, soft, non-tender, no organomegaly or mass - Extremities Exam Extremities exam: no edema - Skin Skin exam: no rash Results - Labs CBC & BMP: 04/11/17 05:32 04/13/17 06:15 Lab Results: I have reviewed the past 24 hour labs (Lung biopsy specimen negative for granulomas also fungal and AFB stains negative. Her Coccidioides screening serology has come back positive and the confirmatory testing is pending)
[2017-04-13 15:14] LABS: Basophils # 0.1 10*3/uL (0.0-0.2); Basophils % 0.4 % (0.0-0.8); Eosinophils # 2.5 10*3/uL (0.0-0.87); Eosinophils % 21.7 % (0.00-10.9); Hematocrit 35.1 VOL% (35.7-47.0); Hemoglobin 12.1 GM/DL (12.0-16.0); Immature Granulocytes % 0.9 %; Lymphocytes # 2.4 10*3/uL (1.4-4.0); Lymphocytes % 20.7 % (21.3-54.2); Mean Corpuscular HGB Conc 34.5 GM/DL (32-36); Mean Corpuscular Hemoglobin 29 PG (27-34); Mean Corpuscular Volume 84.2 FL (87-102); Mean Platelet Volume 9.4 FL (9.6-12.0); Monocytes # 0.6 10*3/uL (0.11-0.8); Monocytes % 5.2 % (1.7-12.7); Neutrophils % 51.1 % (38.7-73.9); Platelet Count 313 T/CUMM (130-400); Red Blood Count 4.17 MC/CUMM (3.8-5.5); Red Cell Distribution Width 12.2 % (9.3-17.3); White Blood Count 11.7 T/CUMM (4-12)
--- NOTE | 2017-04-13 15:24 | Discharge Summary ---
Hospital Course - Hospital Course Hospital Course: Ms. Arzate is a 52 year old [place] female with a past medical history significant only for diabetes mellitus and cholecystectomy who presented via EMS as a direct admit from [facility] for further evaluation of chronic cough and CT suspicious of pneumonia. 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 In the last six weeks, she has traveled to [place], [place] and [place]. She reports that she did experience some cough productive of sputum prior to her trip to [place] in February that resolved spontaneously. She reported that she began to cough again upon returning to work on March 20. She hasn't been to work since that day. During her most recent trip to [place] approximately two weeks ago she began to experience chest pain which prompted her to visit the ER in [place]. A CXR and CT confirmed the presence of pneumonia. She was started on po Levaquin. Upon returning to [place] this week, she still did not feel better. A repeat CT at [facility] show multiple bilateral nodules suspicious for metastasis, small right pleural effusion. She was admitted to the hospital medicine service for further evaluation and treatment. She was started on vancomycin and zosyn. Buttonhole Maker, Dr. Landaverde, was consulted. CT scan was noted to have an area of consolidation in the right middle lobe. Bronchoscopy was performed 04/11/17. Infectious disease was consulted. She has responded well to antibiotics. Vancomycin was stopped today. It was noted that her cocciodioides screening serology returned positive, final titers to see if this is an active infection are still pending. She will need 5-7 days of IV zosyn therapy. She will need a repeat CT in 6 weeks. She will now be transferred back to [facility] to complete antibiotic therapy. - Time spent with patient Time with patient DS: Less than 30 minutes (25) Diagnosis - Discharge Diagnosis (1) Diabetes mellitus Status: Chronic (2) Unresolved pneumonia Status: Resolved (3) Multiple lung nodules Status: Chronic (4) Recent travel to [facility] Status: Chronic Discharge Plan - Discharge Data Disposition: Disch/[facility] Condition at Discharge: Stable Discharge Diet: diabetic diet Activity: increase activity as tolerated Hygiene: no restrictions Weight Bearing at Discharge: weight bear as tolerated - Discharge Medications New Piperacillin/Tazobactam [Zosyn] 3,375 mg IV Q8H vial guaiFENesin/DM ER 600-30 [Mucinex Dm 600-30 MG] 1 tablet PO BID PRN tablet PRN Reason: Congestion Continue metFORMIN [Glucophage] 500 mg PO BID - Follow Up or Referral - Forms/Instructions Exam - Constitutional Vitals: Period Temp Pulse Resp BP Sys/Oliver Pulse Ox Last 24 Hr 97.0 F-98.8 F 71-84 18-20 121-146/53-81 92-96 General appearance: over weight - Head Head exam: Present: normocephalic, atraumatic - Eye Eye exam: Present: EOMI Pupils: Present: ЕКАТЕРИНА - ENT ENT exam: Present: normal exam - Neck Neck exam: Present: normal inspection - Respiratory Respiratory exam: Present: clear to auscultation bilaterally. Absent: rhonchi, wheezes - Cardiovascular Cardiovascular exam: Present: regular rate and rhythm - GI/Abdominal GI/Abdominal exam: Present: normal bowel sounds, soft. Absent: tenderness, rebound - Extremities Exam Extremities exam: Present: normal inspection - Back Exam Back exam: Present: normal inspection - Neurological Exam Neurological exam: Present: alert, oriented X3 - Psychiatric Psychiatric exam: Present: normal affect, normal mood - Skin Skin exam: Present: warm, intact Discharge Results Procedures and tests throughout hospitalization: Pending Orders 04/10/17 16:38 Blood Culture Stat 04/11/17 AFB Culture/Smears Routine Bronchial Washings C & Gram St Routine Fungal Culture w/ Prep Routine 04/11/17 08:50 Cytology Request Routine 04/11/17 14:33 Histoplasma Antigen,Urine Routine 04/13/17 14:27 CBC [Comp Blood Count Auto Diff] Stat Labs on day of discharge: Labs from last 24 hours 04/13/17 04/13/17 04/13/17 11:14 06:35 06:15 Sodium 144 Potassium 3.7 Chloride 110 H Carbon Dioxide 26 Anion Gap 11.7 BUN 6 L Creatinine 0.70 GFR Calculation 92 BUN/Creatinine Ratio 8.00 Glucose 146 H POC Glucose 121 H 155 H Calculated Osmolality 286.8 Calcium 8.4 L Coccidioides Ab Screen 04/12/17 04/12/17 04/12/17 21:20 20:43 15:23 Sodium Potassium Chloride Carbon Dioxide Anion Gap BUN Creatinine GFR Calculation BUN/Creatinine Ratio Glucose POC Glucose 137 H 136 H 173 H Calculated Osmolality Calcium Coccidioides Ab Screen 04/10/17 16:38 Sodium Potassium Chloride Carbon Dioxide Anion Gap BUN Creatinine GFR Calculation BUN/Creatinine Ratio Glucose POC Glucose Calculated Osmolality Calcium Coccidioides Ab Screen Reactive Preliminary micro results at discharge 04/11/17 Unknown Bronchial Washings Culture - Preliminary Bronchial Washings 04/10/17 16:38 Blood Culture - Preliminary Blood No growth at 1 day 04/10/17 16:38 Blood Culture - Preliminary Blood No growth at 1 day DS: Provider Date of admission: 04/10/17 14:54 Primary care physician: Irving Coyne MD Attending physician on admission: Brock Ann MD Consults: 04/10/17 16:18 Consult to Physician [CONS] Routine Comment: complicated pneumonia Consulting Provider: Tyler Landaverde Person Notified: Dr. Landaverde Consult Notification Comment: evidence by notes. 04/10/17 16:25 Consult to Pharmacy [CONS] Routine Reason for Pharmacy Consult: Dose/Manage Vancomycin 04/11/17 09:03 Consult to Physician [CONS] Routine Comment: unresolved pneumonia, recent trip to [place] etc. Consulting Provider: Manisha Riley Consult to Specialist Group: Infectious Disease When should Consulting Provider be notified: Now Person Notified: ONDMargarita Date Notified: 04/11/17 Time Notified: 09:39 Discharging clinician: Clive Molina MD
[2017-04-13 15:44] VITALS: BP 140/82
[2017-04-13 18:21] LABS: Eosinophils 19 % (0-10); Hypochromasia 1+; Lymphocytes 21 % (20-55); Platelet Estimate Adequate; Segmented Neutrophils 56 % (50-85); Total Cells Counted 100
== END 2017-04-13 17:00 | disposition other institution (70) | DRG 168 ==
LOC: N.2E 14:54 → SUATTDRO 14:54
PROVIDERS: ADMIT Family Medicine; ATTEND Internal Medicine